=== PATIENT | female | born 1940 | race Asian ===

== ENCOUNTER 2016-07-23 06:48 | Day surgery (SDC) | payer MEDICARE, OTHER ==
[~2016-07-23] VITALS: Ht 152.4 cm; Wt 55.3 kg
[~2016-07-23 06:48] MED LIST: FOSAMAX 70MG TA70 MG PO; GLYBURIDE PO; LISINOPRIL1 POW PO; METFORMIN HCL PO; OYSTER CALCIUM500 M1 PO; PRILOSEC20 MG PO; SIMVASTATIN1 POW PO
[2016-07-23] MEDS ORDERED: NYSTATIN OR100 MU/ML PO (07:38)
[2016-07-23] MEDS ORDERED: ACTOS 15MG TAB15 MG PO (07:38)
[2016-07-23] MEDS ORDERED: ZOCOR 40MG40 MG PO (07:39)
[2016-07-23] MEDS ORDERED: COZAAR 50MG50 MG/TAB PO (07:39)
[2016-07-23] MEDS ORDERED: JARDIANCE10 PO (07:40)
[2016-07-23] MEDS ORDERED: MIACALCIN NASA3.7 ML NS (07:40)
[2016-07-23 07:49] VITALS: BP 155/57; PULSE 62; TEMP 97.6
[2016-07-23 09:01] LABS: BASO # 0.1 (0.0-0.2); BASO % 1.1 % (0.0-2.0); EOS # 0.1 (0.0-0.7); EOS % 2.5 % (0-4.0); GRAN # 2.4 (1.4-6.5); GRAN % 54.5 % (42.2-75.2); HEMATOCRIT 40.8 % (37.0-47.0); HEMOGLOBIN 13.1 g/dl (12.5-16.0); LYMPH # 1.5 (1.2-3.4); LYMPH % 33.5 % (20.0-51.0); MEAN CELL VOLUME 94 fl (80.0-100.0); MEAN CORPUSCULAR HEMOGLOBIN 30 pg (27.0-31.0); MEAN CORPUSCULAR HGB CONC 32 g/dl (33.0-37.0); MEAN PLATELET VOLUME 10.3 fl (7.4-10.4); MONO # 0.4 (0.1-0.6); PLATELET COUNT 156 K/mm3 (130-400); RED BLOOD COUNT 4.34 M/mm3 (4.10-5.30); REDCELL DISTRIBUTION WIDTH-CV 13.1 % (11.5-14.5); WHITE BLOOD COUNT 4.5 K/mm3 (4.8-10.8)
[2016-07-23 09:21] LABS: ADJUSTED CALCIUM 8.8 mg/dL (8.4-10.2); ALANINE AMINOTRANSFERASE 23 U/L (9-52); ALKALINE PHOSPHATASE 53 U/L (50-136); ANION GAP 9 mmol/L (7-16); BILIRUBIN,TOTAL 0.7 mg/dL (0.0-1.0); BLOOD UREA NITROGEN 18 mg/dL (7-17); CALCIUM 8.8 mg/dL (8.4-10.2); CARBON DIOXIDE 29 mmol/L (22-30); CHLORIDE 103 mmol/L (98-107); CREATININE, serum 0.71 mg/dL (0.52-1.25); GLUCOSE 124 mg/dL (74-106); POTASSIUM 3.7 mmol/L (3.4-5.0); SODIUM 141 mmol/L (137-145); TOTAL PROTEIN 6.6 gm/dL (6.4-8.2)
[2016-07-23 09:30] LABS: C-REACTIVE PROTEIN < 0.5 mg/dL (0.0-0.9)
[2016-07-23 11:05] VITALS: BP 157/67; PULSE 80
[2016-07-23 11:20] VITALS: BP 168/78; PULSE 72
[2016-07-23 14:19] VITALS: BP 135/72; PULSE 78
[2016-07-31 14:14] LABS: IGE RECEPTOR AB 6 (())
== END 2016-07-23 11:30 | disposition home or self-care (01) ==
LOC: SDCO 06:48
PROVIDERS: Internal Medicine Pulmonary Disease
DX: R05 Cough (principal); R04.2 Hemoptysis
CPT/HCPCS: J2704; J7030

== ENCOUNTER 2019-05-31 14:56 | Emergency (ER) | payer MEDICARE, OTHER ==
[~2019-05-31] VITALS: Ht 152.4 cm; Wt 54.5 kg
[~2019-05-31 14:56] MED LIST changes: +ACTOS 15MG TAB15 MG PO; +COZAAR 50MG50 MG/TAB PO; +JARDIANCE10 PO; +MIACALCIN NASA3.7 ML NS; +NYSTATIN OR100 MU/ML PO; +ZOCOR 40MG40 MG PO
[2019-05-31] MEDS ORDERED: LIPITOR20 MG PO (15:58)
[2019-05-31 16:44] LABS: BASO # 0.1 (0.0-0.2); BASO % 0.9 % (0.0-2.0); EOS # 0.1 (0.0-0.7); EOS % 2.2 % (0-4.0); GRAN # 3.8 (1.4-6.5); GRAN % 60.1 % (42.2-75.2); HEMATOCRIT 42.7 % (37.0-47.0); HEMOGLOBIN 13.5 g/dl (12.5-16.0); LYMPH # 1.9 (1.2-3.4); LYMPH % 29.4 % (20.0-51.0); MEAN CELL VOLUME 93 fl (80.0-100.0); MEAN CORPUSCULAR HEMOGLOBIN 29 pg (27.0-31.0); MEAN CORPUSCULAR HGB CONC 32 g/dl (33.0-37.0); MEAN PLATELET VOLUME 10.4 fl (7.4-10.4); MONO # 0.5 (0.1-0.6); MONO % 7.1 % (1.7-9.3); PLATELET COUNT 170 K/mm3 (130-400); RED BLOOD COUNT 4.61 M/mm3 (4.10-5.30); REDCELL DISTRIBUTION WIDTH-CV 13.2 % (11.5-14.5)
[2019-05-31 17:00] LABS: ALANINE AMINOTRANSFERASE 23 U/L (9-52); ALBUMIN 4.5 gm/dL (3.5-5.0); ALKALINE PHOSPHATASE 61 U/L (50-136); ANION GAP 8 mmol/L (7-16); AST,SGOT 32 U/L (15-37); BILIRUBIN,TOTAL 0.4 mg/dL (0.0-1.0); BLOOD UREA NITROGEN 25 mg/dL (7-17); CALCIUM 9.1 mg/dL (8.4-10.2); CARBON DIOXIDE 28 mmol/L (22-30); CHLORIDE 104 mmol/L (98-107); CREATININE, serum 0.59 (0.52-1.25); GLUCOSE 134 mg/dL (74-106); SODIUM 139 mmol/L (137-145); TOTAL PROTEIN 7.7 gm/dL (6.4-8.2)
[2019-05-31 17:09] LABS: C-REACTIVE PROTEIN < 0.5 mg/dL (0.0-0.9)
[2019-05-31] MEDS ORDERED: LEVAQUIN 5500 MG/TA1 PO (18:16)
[2019-05-31 18:44] VITALS: BP 136/76; PULSE 78; TEMP 98.4
== END 2019-05-31 18:44 | disposition home or self-care (01) ==
LOC: COL.ER 14:56
PROVIDERS: Emergency Medicine
DX: J47.9 Bronchiectasis, uncomplicated (principal); R04.2 Hemoptysis; E11.9 Type 2 diabetes mellitus without complications; Z79.84 Long term (current) use of oral hypoglycemic drugs
CPT/HCPCS: Q9967

== ENCOUNTER → 2021-01-23 | Outpatient (REF) ==
[~2021-01-23] MED LIST changes: +LEVAQUIN 5500 MG/TA1 PO; +LIPITOR20 MG PO
== END ==
LOC: COL.CARD 12:59
DX: Z01.810 Encounter for preprocedural cardiovascular examination (principal)